=== PATIENT | female | born 1995 | race Caucasian/White ===

== ENCOUNTER → 2024-05-27 | Outpatient (REF) | payer OTHER ==
[~2024-05-27] MED LIST: CLEO300C2 PO; IBUP200T2 PO; OMEP20CA3 PO; PENI500T PO; PENICILLIN G IV; VICO7.5T11 PO; VICOBULK PO
== END ==
LOC: M LAB REF 11:39
PROVIDERS: ATTEND Nurse Practitioner Family
DX: R30.0 Dysuria (principal)